=== PATIENT | female | born 1940 | race Hispanic/Latino ===

== ENCOUNTER 2017-08-26 12:34 | Emergency (ER) | payer MEDICARE ==
[2017-08-26] MEDS ORDERED: SUBLIMAZE IV ONE (13:13)
--- NOTE | 2017-08-26 13:13 | Emergency Department Report ---
ED Fall HPI - General Chief Complaint: Extremity Injury, Lower Stated Complaint: FELL ON HIP Time Seen by Provider: 08/26/17 13:04 Source: patient, EMS Mode of arrival: Stretcher - History of Present Illness Initial Comments: 76-year-old tripped over a puppy yesterday today with worsening left hip pain left posterior rib pain also bruised her left foot no LOC no head injury and no neck pain no back pain no abdominal complaints no numbness tingling or weakness weakness -: Gradual Fall From: standing When Fall Occurred: 24 hours TEST LEAD Fall Witnessed: yes, by family Place Fall Occurred: home Loss of Consciousness: none Prolonged Down Time?: no Symptoms Prior to Fall: none Location: back, pelvis Associated Symptoms: other (she denies other injuries no neck pain no abdominal pain no numbness tingling or weakness no LOC does have some left-sided flank pain into the left hip). denies: headache, neck pain, numbness, weakness, chest paint, shortness of breath, abdominal pain, hematuria, unable to walk, lightheaded, vertigo, confusion - Related Data Allergies Allergy/AdvReac Type Severity Reaction Status Date / Time acetaminophen Allergy Hives Verified 08/26/17 12:52 [From Tylenol Sinus Congestion Pain] chlorpheniramine Allergy Hives Verified 08/26/17 12:52 [From Tylenol Sinus Congestion Pain] guaifenesin Allergy Hives Verified 08/26/17 12:52 [From Tylenol Sinus Congestion Pain] morphine Allergy Hives Verified 08/26/17 12:52 Penicillins Allergy Hives Verified 08/26/17 12:52 phenylephrine Allergy Hives Verified 08/26/17 12:52 [From Tylenol Sinus Congestion Pain] promethazine [From Phenergan] Allergy Hives Verified 08/26/17 12:52 pseudoephedrine Allergy Hives Verified 08/26/17 12:52 [From Sudafed] Sulfa (Sulfonamide Allergy Nausea Verified 08/26/17 12:52 Antibiotics) PSEUDOEPHEDRINE Allergy Hives Uncoded 08/26/17 15:36 ED Review of Systems ROS: Stated complaint: FELL ON HIP Other details as noted in HPI Comment: All other systems reviewed and negative Constitutional: denies: diaphoresis, fever, malaise Eyes: denies: eye discharge, vision change ENT: denies: dental pain, hearing loss, epistaxis Respiratory: denies: orthopnea, shortness of breath, SOB with exertion, SOB at rest, stridor Cardiovascular: denies: chest pain, palpitations, dyspnea on exertion, orthopnea , edema, syncope, paroxysmal nocturnal dyspnea Gastrointestinal: denies: abdominal pain, nausea, vomiting, diarrhea, constipation, hematemesis, melena, hematochezia Skin: other (bruising left foot refuses an x-ray of this at this time) Neurological: denies: numbness, paresthesias, confusion, abnormal gait, vertigo Psychiatric: denies: auditory hallucinations Hematological/Lymphatic: denies: easy bleeding, swollen glands ED Past Medical Hx - Past Medical History Previous Medical History?: Yes Hx Hypertension: Yes Hx Diabetes: Yes Additional medical history: ANEMIA - Surgical History Hx Cholecystectomy: Yes Additional Surgical History: HEART/HERNIA - Social History Smoking Status: Never Smoker Substance Use Type: None ED Physical Exam - General Limitations: Other General appearance: alert, in no apparent distress - Head Head exam: Present: atraumatic, normocephalic - Eye Eye exam: Present: PERRL, EOMI - ENT ENT exam: Present: normal exam, normal orophraynx - Neck Neck exam: Present: normal inspection. Absent: tenderness, meningismus - Respiratory Respiratory exam: Present: normal lung sounds bilaterally. Absent: respiratory distress, wheezes, rales, rhonchi, stridor, chest wall tenderness, accessory muscle use, decreased breath sounds, prolonged expiratory - Cardiovascular Cardiovascular Exam: Present: regular rate, normal rhythm, normal heart sounds, other (pulses equal bilaterally). Absent: bradycardia, tachycardia, irregular rhythm - GI/Abdominal GI/Abdominal exam: Present: soft. Absent: tenderness, guarding, rebound, mass, pulsatile mass - Extremities Exam Extremities exam: Present: tenderness, normal capillary refill, other ( tenderness left hip tenderness left iliac crest in the left posterior back no deformity or crepitus is appreciated no midline spinal tenderness is appreciated no neck tenderness the remainder of the extremities there is bruising to the dorsal left foot without bony deformity or crepitus she does afford range of motion the rest contact). Absent: pedal edema, calf tenderness - Back Exam Back exam: Present: tenderness - Neurological Exam Neurological exam: Present: alert, oriented X3, CN II-XII intact. Absent: motor sensory deficit ED Course Vital Signs 08/26/17 08/26/17 08/26/17 12:52 13:25 14:49 Temperature 97.9 F Pulse Rate 65 76 82 Respiratory 18 18 18 Rate Blood Pressure 165/75 Blood Pressure 163/73 151/72 [Left] O2 Sat by Pulse 94 96 100 Oximetry ED Medical Decision Making - Radiology Data Radiology results: report reviewed - Medical Decision Making Chest shows no acute process patient did refuse an x-ray of the left foot she thinks just a bruise that was prior to today's injury she thinks she dropped something on her at home she says it continues to be painful she will come back for an x-ray. The acute issue was the left hip pain in the left posterior back pain there is evidence on the CT of a nondisplaced transverse process fracture of L4 this is a stable fracture. She has no focal neural problems abd exam is normal abdomen is soft nontender without rebound or guarding no head injury or other spinal injury is appreciated she is still from his fall with orthopedics she is refusing pain medications she says she'll take [id number] ibuprofen and a heating pad return if nor alarming symptoms and verbalized understanding of need for follow-up. Patient was also noted to have some inflammatory changes to the pelvic region with possible adenopathy she was informed of this as well as this will need outpatient follow-up and she verbalized understanding Critical care attestation.: If time is entered above; I have spent that time in minutes in the direct care of this critically ill patient, excluding procedure time. ED Disposition Clinical Impression: Lumbar transverse process fracture, Pelvic lymphadenopathy Disposition: TO HOME OR SELFCARE Is pt being admited?: No Condition: Stable Instructions: Thoracolumbar Fracture (ED), Lymphadenopathy (ED) Additional Instructions: Return immediately if new or alarming symptoms or call 911, return if worsening back pain numbness tingling or weakness bladder or bowel problems or other problems fever a loss concerning problems C her regular doctor in 2 days or an orthopedic doctor of your choice Referrals: CHITRA MONTILLA MD [Primary Care Provider] - 3-5 Days DANNI RENTERIA MD [Staff Physician] - 3-5 Days Time of Disposition: 15:47
[2017-08-26] MEDS ORDERED: ZOFRAN IV ONE (13:14)
[2017-08-26] MEDS ORDERED: ZOFRAN ONE (13:19)
[2017-08-26] MEDS ORDERED: SUBLIMAZE ONE (13:19)
--- NOTE | 2017-08-26 14:42 | Cat Scan Report ---
FINAL REPORT EXAM: CT PELVIS WO CON HISTORY: l hip pain TECHNIQUE: CT examination of the pelvis without IV contrast PRIORS: Left hip radiographs 08/26/2017 FINDINGS: Multifocal degenerative change. No acute fracture or dislocation in the pelvis and hips. Intact proximal femurs. There is a minimally displaced avulsion fracture of the left L4 transverse process. No pelvic free fluid. Intact urinary bladder. Nonspecific prominence of stool in rectum. Faint hazy opacity and fat stranding is present in the central mesenteric adipose tissue with prominent lymph nodes but no gross lymph node enlargement. This finding is nonspecific and can be associated with a number of etiologies including scar, edema, inflammation, or infection. Moderate descending and sigmoid diverticulosis. IMPRESSION: Minimally displaced avulsion fracture of the left L4 transverse process Mesenteric fat stranding with prominent of normal sized lymph nodes. Considerations include scar, edema, inflammation, or infection Moderate descending and sigmoid diverticulosis
[2017-08-26 14:49] VITALS: BP 151/72
--- NOTE | 2017-08-26 15:28 | XRay Report ---
FINAL REPORT EXAM: XR CHEST ROUTINE 2V HISTORY: fall/back pain l TECHNIQUE: Frontal and lateral views of the chest. PRIORS: None currently available. FINDINGS: Moderate cardiomegaly. Aortic calcifications. Sternal surgical artifacts are intact. There is no effusion. There is no pneumothorax. There is no consolidation. Lungs appear hyperinflated and may be related to reactive airway disease or COPD. There are no suspicious osseous lesions. Degenerative changes in the spine. No acute displaced fracture is evident on chest x-ray. IMPRESSION: COPD. Cardiomegaly. Otherwise, no acute pulmonary findings.
--- NOTE | 2017-08-26 15:47 | XRay Report ---
FINAL REPORT EXAM: XR PELVIS AND HIP LT HISTORY: PAIN S/P FALL TECHNIQUE: One view of the pelvis One view of the left hip PRIORS: Pelvis CT 08/26/2017 FINDINGS: Arterial calcification is compatible with atherosclerosis. Multifocal degenerative change. Subtle avulsion fracture left L4 transverse process. Intact pelvis and left hip. No dislocation. IMPRESSION: Subtle avulsion fracture left L4 transverse process
== END 2017-08-26 16:08 | disposition home or self-care (01) ==
LOC: ED 12:34
DX: S32.048A Other fracture of fourth lumbar vertebra, initial encounter for closed fracture (principal); R59.0 Localized enlarged lymph nodes; I10 Essential (primary) hypertension; E11.9 Type 2 diabetes mellitus without complications; Z88.6 Allergy status to analgesic agent; Z88.1 Allergy status to other antibiotic agents; Z88.0 Allergy status to penicillin; Z88.8 Allergy status to other drugs, medicaments and biological substances; W18.30XA Fall on same level, unspecified, initial encounter; Y93.89 Activity, other specified; Y92.89 Other specified places as the place of occurrence of the external cause; Y99.8 Other external cause status
CPT/HCPCS: 71046; 72192; 73502; 96374; 96375; 99284; J2405; J3010

== ENCOUNTER 2019-02-06 02:55 | Observation (INO) | payer MEDICARE ==
--- NOTE | 2019-02-06 03:29 | XRay Report ---
CHEST 1 VIEW 0304 INDICATION / CLINICAL INFORMATION: Chest Pain. COMPARISON: None available. FINDINGS: SUPPORT DEVICES: None HEART / MEDIASTINUM: No significant abnormality. LUNGS / PLEURA: Moderate diffuse chronic changes are seen in the lung darden. No definite areas of co nsolidation are seen. May be slight atelectatic change in the left base. No pneumothorax. ADDITIONAL FINDINGS: No significant additional findings. IMPRESSION: No significant acute abnormality Signer Name: Puneet Ngo MD Signed: 02/06/2019 3:25 AM Workstation Name: [id number]
[2019-02-06 03:58] LABS: Basophils % (Auto) 1.1 % (0.0-1.8); Eosinophils # (Auto) 0.1 K/mm3 (0.0-0.4); Eosinophils % (Auto) 1.6 % (0.0-4.3); Hemoglobin 10.8 gm/dl (10.1-14.3); Lymphocytes % (Auto) 25.7 % (13.4-35.0); Mean Corpuscular HGB Conc 33 % (30-34); Mean Corpuscular Volume 95 fl (79-97); Monocytes # (Auto) 0.3 K/mm3 (0.0-0.8); Monocytes % (Auto) 8.5 % (0.0-7.3); Platelet Count 123 K/mm3 (140-440); Red Blood Count 3.46 M/mm3 (3.65-5.03); Red Cell Distribution Width 15.4 % (13.2-15.2)
[2019-02-06 04:09] LABS: BUN/Creatinine Ratio 22; Blood Urea Nitrogen 13 mg/dL (7-17); Calcium 8.6 mg/dL (8.4-10.2); Hemolysis Index 5
--- NOTE | 2019-02-06 06:20 | Emergency Department Report ---
ED Chest Pain HPI - General Chief Complaint: Chest Pain Stated Complaint: HBP Time Seen by Provider: 02/06/19 06:17 Source: EMS Mode of arrival: Stretcher Limitations: No Limitations - History of Present Illness Initial Comments: 78-year-old female who arrives primarily concerned about her blood pressure. She states incidentally that she's been having intermittent chest pain and some shortness of breath. She states she used her home nebulizer. She presented to the emergency department without chest pain at the time of my encounter. The chest pain was nonpleuritic and nonradiating involving her anterior chest. She states that she is status post PCI followed by a single vessel coronary artery bypass. She states he has been unable to control the blood pressure despite taking sublingual nitroglycerin. -: Gradual, hour(s) Pain Location: substernal Pain Radiation: none Severity: mild Severity scale (0 -10): 4 Quality: aching Consistency: intermittent Improves With: nothing Worsens With: nothing re: dyspnea Other Symptoms: cough (occasional) Treatments Prior to Arrival: none - Related Data Allergies Allergy/AdvReac Type Severity Reaction Status Date / Time acetaminophen Allergy Hives Verified 08/26/17 12:52 [From Tylenol Sinus Congestion Pain] chlorpheniramine Allergy Hives Verified 08/26/17 12:52 [From Tylenol Sinus Congestion Pain] guaifenesin Allergy Hives Verified 08/26/17 12:52 [From Tylenol Sinus Congestion Pain] morphine Allergy Hives Verified 08/26/17 12:52 Penicillins Allergy Hives Verified 08/26/17 12:52 phenylephrine Allergy Hives Verified 08/26/17 12:52 [From Tylenol Sinus Congestion Pain] promethazine [From Phenergan] Allergy Hives Verified 08/26/17 12:52 pseudoephedrine Allergy Hives Verified 08/26/17 12:52 [From Sudafed] Sulfa (Sulfonamide Allergy Nausea Verified 08/26/17 12:52 Antibiotics) PSEUDOEPHEDRINE Allergy Hives Uncoded 08/26/17 15:36 Heart Score - HEART Score History: Slightly suspicious EKG: Normal Age: > 65 Risk factors: > 3 risk factors or hx of atherosclerotic disease Troponin: < normal limit HEART Score: 4 - Critical Actions Critical Actions: 4-6 pts:12-16.6% risk of adverse cardiac event. Should be admitted ED Review of Systems ROS: Stated complaint: HBP Other details as noted in HPI Constitutional: denies: chills, fever Eyes: denies: eye pain, eye discharge, vision change ENT: denies: ear pain, throat pain Respiratory: shortness of breath. denies: cough, wheezing Cardiovascular: chest pain. denies: palpitations Endocrine: no symptoms reported Gastrointestinal: denies: abdominal pain, nausea, diarrhea Genitourinary: denies: urgency, dysuria, discharge Musculoskeletal: denies: back pain, joint swelling, arthralgia Skin: denies: rash, lesions Neurological: denies: headache, weakness, paresthesias Psychiatric: denies: anxiety, depression Hematological/Lymphatic: denies: easy bleeding, easy bruising ED Past Medical Hx - Past Medical History Previous Medical History?: Yes Hx Hypertension: Yes Hx Diabetes: Yes Additional medical history: ANEMIA - Surgical History Past Surgical History?: Yes Hx Cholecystectomy: Yes Additional Surgical History: HEART/HERNIA - Social History Smoking Status: Never Smoker Substance Use Type: None ED Physical Exam - General Limitations: No Limitations General appearance: alert, in no apparent distress - Head Head exam: Present: atraumatic, normocephalic - Eye Eye exam: Present: normal appearance. Absent: scleral icterus - ENT ENT exam: Present: mucous membranes moist - Neck Neck exam: Present: normal inspection. Absent: tenderness, meningismus - Respiratory Respiratory exam: Present: normal lung sounds bilaterally. Absent: respiratory distress - Cardiovascular Cardiovascular Exam: Present: regular rate, normal rhythm. Absent: systolic murmur, diastolic murmur, rubs, gallop - GI/Abdominal GI/Abdominal exam: Present: soft, normal bowel sounds. Absent: distended, tenderness, guarding, rebound, rigid - Extremities Exam Extremities exam: Present: pedal edema. Absent: normal capillary refill, joint swelling, calf tenderness - Back Exam Back exam: Present: normal inspection - Neurological Exam Neurological exam: Present: alert, oriented X3, CN II-XII intact. Absent: motor sensory deficit - Psychiatric Psychiatric exam: Present: normal affect, normal mood - Skin Skin exam: Present: warm, dry, intact, normal color. Absent: rash ED Course Vital Signs 02/06/19 02/06/19 02/06/19 04:21 05:00 07:00 Temperature 98.3 F 98.4 F Pulse Rate 62 63 68 Respiratory 14 14 18 Rate Blood Pressure 166/78 146/76 151/77 [Left] O2 Sat by Pulse 97 94 98 Oximetry 02/06/19 08:25 Temperature Pulse Rate 68 Respiratory 15 Rate Blood Pressure 146/78 [Left] O2 Sat by Pulse 99 Oximetry - Reevaluation(s) Reevaluation #1: Nitropaste. Discussed with hospitalist. Admit for further care and evaluation. 02/06/19 09:21 ANDRA score - Andra Score Age > 65: (0) No Aspirin use within the Past 7 Days: (1) Yes 3 or more CAD Risk Factors: (0) No 2 or more Angina events in past 24 hrs: (0) No Known CAD with more than 50% Stenosis: (0) No Elevated Cardiac Markers: (0) No ST Deviation Greater than 0.5mm: (0) No ANDRA Score: 1 ED Medical Decision Making - Lab Data Result diagrams: 02/06/19 03:18 02/06/19 03:18 Laboratory Results - last 24 hr 02/06/19 02/06/19 03:18 03:18 WBC 4.0 L RBC 3.46 L Hgb 10.8 Hct 33.0 MCV 95 MCH 31 MCHC 33 RDW 15.4 H Plt Count 123 L Lymph % (Auto) 25.7 [place] % (Auto) 8.5 H Eos % (Auto) 1.6 Baso % (Auto) 1.1 Lymph # 1.0 L [place] # 0.3 Eos # 0.1 Baso # 0.0 Seg Neutrophils % 63.1 Seg Neutrophils # 2.5 Sodium 139 Potassium 3.7 Chloride 104.1 Carbon Dioxide 22 Anion Gap 17 BUN 13 Creatinine 0.6 L Estimated GFR > 60 BUN/Creatinine Ratio 22 Glucose 135 H Calcium 8.6 Troponin T < 0.010 - EKG Data -: EKG Interpreted by Sd EKG shows normal: sinus rhythm Rate: normal - EKG Data Interpretation: other (somewhat low voltage) - Radiology Data Radiology results: image reviewed (no acute process) Critical care attestation.: If time is entered above; I have spent that time in minutes in the direct care of this critically ill patient, excluding procedure time. ED Disposition Clinical Impression: Poorly-controlled hypertension Chest pain Qualifiers: Chest pain type: unspecified Qualified Code(s): R07.9 - Chest pain, unspecified Disposition: OP ADMIT IP TO THIS HOSP Is pt being admited?: Yes Does the pt Need Aspirin: Yes Condition: Stable Instructions: Chest Pain (ED) Referrals: PRIMARY CARE, [Primary Care Provider] - 3-5 Days Time of Disposition: 09:23
[2019-02-06] MEDS ORDERED: NITROGLYCERIN 2% OINT 1 GM TP ONE ×2 (06:23→09:38)
[2019-02-06 07:23] LABS: INR 0.95 (0.87-1.13)
[2019-02-06 07:24] LABS: Partial Thromboplastin Time 24.5 Sec. (24.2-36.6)
[2019-02-06 07:28] LABS: Alanine Aminotransferase 16 units/L (7-56); Albumin 4.2 g/dL (3.9-5)
[2019-02-06 07:29] LABS: Bilirubin,Direct < 0.2 mg/dL (0-0.2)
[2019-02-06] MEDS: ASPIRIN 325 MG TAB PO ONE ×2 (07:30→11:41)
[2019-02-06] MEDS ORDERED: ACETAMINOPHEN 325 MG TAB PO PRN (11:04)
[2019-02-06] MEDS ORDERED: ONDANSETRON 4 MG/2 ML INJ IV PRN (11:04)
[2019-02-06] MEDS ORDERED: NITROGLYCERIN 0.4 MG TAB SUBL SL PRN (11:06)
--- NOTE | 2019-02-06 11:07 | History and Physical Report ---
History of Present Illness Chief complaint: My blood pressure has been high History of present illness: 78-year-old woman who presents to the hospital concerned about her blood pressure. She then incidentally states that she has some chest pain or shortness of breath. Chest pain is 4 out of 10, substernal, nonradiating. She tried using her home nebulizer with no improvements. Chest pain is nonpleuritic. She has history of CAD status post PCI followed by single-vessel CABG. It appears that the patient was trying to control her blood pressure at home with sublingual nitroglycerin. Home medications are not available for review at this time. But patient self reports that she takes lisinopril, metoprolol and Imdur. States that lisinopril was added because her blood pressure was not well controlled. 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 Past medical history; hypertension, diabetes, chronic anemia, asthma on Dulera Past surgical history, cholecystectomy, CABG, hernia repair Social history; never smoker, denies alcohol abuse or illicit drug use Family history; heart disease Medications and Allergies Allergies Allergy/AdvReac Type Severity Reaction Status Date / Time acetaminophen Allergy Hives Verified 08/26/17 12:52 [From Tylenol Sinus Congestion Pain] chlorpheniramine Allergy Hives Verified 08/26/17 12:52 [From Tylenol Sinus Congestion Pain] guaifenesin Allergy Hives Verified 08/26/17 12:52 [From Tylenol Sinus Congestion Pain] morphine Allergy Hives Verified 08/26/17 12:52 Penicillins Allergy Hives Verified 08/26/17 12:52 phenylephrine Allergy Hives Verified 08/26/17 12:52 [From Tylenol Sinus Congestion Pain] promethazine [From Phenergan] Allergy Hives Verified 08/26/17 12:52 pseudoephedrine Allergy Hives Verified 08/26/17 12:52 [From Sudafed] Sulfa (Sulfonamide Allergy Nausea Verified 08/26/17 12:52 Antibiotics) PSEUDOEPHEDRINE Allergy Hives Uncoded 08/26/17 15:36 Review of Systems All systems: negative Constitutional: no weight loss Ears, nose, mouth and throat: no ear pain Breasts: deferred Cardiovascular: chest pain Respiratory: no cough Gastrointestinal: no abdominal pain Rectal: no pain Musculoskeletal: no neck stiffness Integumentary: no rash Neurological: no head injury Psychiatric: no anxiety Endocrine: no cold intolerance Hematologic/Lymphatic: no easy bruising Allergic/Immunologic: no urticaria Exam - Constitutional Vitals: Temp Pulse Resp BP Pulse Ox 98.2 F 69 15 173/101 98 02/06/19 09:00 02/06/19 09:45 02/06/19 09:00 02/06/19 09:45 02/06/19 09:00 General appearance: Present: no acute distress, well-nourished - EENT Eyes: Present: PERRL ENT: hearing intact, clear oral mucosa - Neck Neck: Present: supple, normal ROM - Respiratory Respiratory effort: normal Respiratory: bilateral: CTA - Cardiovascular Heart Sounds: Present: S1 & S2. Absent: rub, click - Extremities Extremities: pulses symmetrical, No edema Peripheral Pulses: within normal limits - Abdominal General gastrointestinal: Present: soft, non-tender, non-distended, normal bowel sounds Female genitourinary: Present: normal - Integumentary Integumentary: Present: clear, warm, dry - Musculoskeletal Musculoskeletal: gait normal, strength equal bilaterally - Psychiatric Psychiatric: appropriate mood/affect, intact judgment & insight - Neurologic Neurologic: CNII-XII intact, moves all extremities Results - Labs CBC & Chem 7: 02/06/19 03:18 02/06/19 09:30 Labs: Laboratory Last Values WBC 4.0 K/mm3 (4.5-11.0) L 02/06/19 03:18 RBC 3.46 M/mm3 (3.65-5.03) L 02/06/19 03:18 Hgb 10.8 gm/dl (10.1-14.3) 02/06/19 03:18 Hct 33.0 % (30.3-42.9) 02/06/19 03:18 MCV 95 fl (79-97) 02/06/19 03:18 MCH 31 pg (28-32) 02/06/19 03:18 MCHC 33 % (30-34) 02/06/19 03:18 RDW 15.4 % (13.2-15.2) H 02/06/19 03:18 Plt Count 123 K/mm3 (140-440) L 02/06/19 03:18 Lymph % (Auto) 25.7 % (13.4-35.0) 02/06/19 03:18 [place] % (Auto) 8.5 % (0.0-7.3) H 02/06/19 03:18 Eos % (Auto) 1.6 % (0.0-4.3) 02/06/19 03:18 Baso % (Auto) 1.1 % (0.0-1.8) 02/06/19 03:18 Lymph # 1.0 K/mm3 (1.2-5.4) L 02/06/19 03:18 [place] # 0.3 K/mm3 (0.0-0.8) 02/06/19 03:18 Eos # 0.1 K/mm3 (0.0-0.4) 02/06/19 03:18 Baso # 0.0 K/mm3 (0.0-0.1) 02/06/19 03:18 Seg Neutrophils % 63.1 % (40.0-70.0) 02/06/19 03:18 Seg Neutrophils # 2.5 K/mm3 (1.8-7.7) 02/06/19 03:18 PT 12.6 Sec. (12.2-14.9) 02/06/19 06:39 INR 0.95 (0.87-1.13) 02/06/19 06:39 APTT 24.5 Sec. (24.2-36.6) 02/06/19 06:39 D-Dimer 707.08 ng/mlDDU (0-234) H 02/06/19 06:39 Sodium 139 mmol/L (137-145) 02/06/19 03:18 Potassium 3.7 mmol/L (3.6-5.0) 02/06/19 03:18 Chloride 104.1 mmol/L (98-107) 02/06/19 03:18 Carbon Dioxide 22 mmol/L (22-30) 02/06/19 03:18 Anion Gap 17 mmol/L 02/06/19 03:18 BUN 13 mg/dL (7-17) 02/06/19 03:18 Creatinine 0.6 mg/dL (0.7-1.2) L 02/06/19 03:18 Estimated GFR > 60 ml/min 02/06/19 03:18 BUN/Creatinine Ratio 22 % 02/06/19 03:18 Glucose 135 mg/dL (65-100) H 02/06/19 03:18 Calcium 8.6 mg/dL (8.4-10.2) 02/06/19 03:18 Magnesium 1.50 mg/dL (1.7-2.3) L 02/06/19 06:39 Total Bilirubin 0.30 mg/dL (0.1-1.2) 02/06/19 06:39 Direct Bilirubin < 0.2 mg/dL (0-0.2) 02/06/19 06:39 Indirect Bilirubin 0.1 mg/dL 02/06/19 06:39 AST 19 units/L (5-40) 02/06/19 06:39 ALT 16 units/L (7-56) 02/06/19 06:39 Alkaline Phosphatase 79 units/L (35-129) 02/06/19 06:39 Troponin T < 0.010 ng/mL (0.00-0.029) 02/06/19 09:30 NT-Pro-B Natriuret Pep 1563 pg/mL (0-900) H 02/06/19 06:39 Total Protein 7.2 g/dL (6.3-8.2) 02/06/19 06:39 Albumin 4.2 g/dL (3.9-5) 02/06/19 06:39 Albumin/Globulin Ratio 1.4 % 02/06/19 06:39 Assessment and Plan Assessment and plan: 78-year-old woman who presents to the hospital complaining of chest pain Chest x-ray no significant acute abnormalities Chest pain aspirin, EKG no acute findings, chest x-ray neg, troponins negative x3, Discussed with cardiology, she was seen at [facility] 2 weeks ago complaining of chest pain and at that time she had elevated blood pressure. Stress test was done and was negative at that time. Hypertensive urgency Optimize BP meds, increase lisinopril dose to 20 daily Asthma, chronic and stable Continue controlled medications, takes Dulera at home DVT prophylaxis; Lovenox
[2019-02-06] MEDS ORDERED: BUDESONIDE 0.5 MG/2 ML NEBU IH ONE (11:10)
[2019-02-06] MEDS ORDERED: ALBUTEROL 2.5 MG/3 ML NEBU IH PRN (11:10)
[2019-02-06] MEDS ORDERED: hydrALAZINE 20 MG/1 ML INJ IV PRN (11:11)
[2019-02-06] MEDS ORDERED: ASPIRIN 325 MG TAB ONE (11:50)
[2019-02-06] MEDS ORDERED: LISINOPRIL 20 MG TAB ONE (11:51)
[2019-02-06] MEDS: LISINOPRIL 20 MG TAB PO SCH (11:56)
[2019-02-06] MEDS ORDERED: METOPROLOL SUCCINATE XL 25 MG TAB PO SCH ×2 (12:00→13:23)
[2019-02-06 12:47] LABS: BUN/Creatinine Ratio 18; Blood Urea Nitrogen 11 mg/dL (7-17); Calcium 8.8 mg/dL (8.4-10.2); Hemolysis Index 5
--- NOTE | 2019-02-06 13:10 | Consultation ---
History of Present Illness Consult date: 02/06/19 Requesting physician: MANA BELLO Consult reason: chest pain History of present illness: The pt is a 78-year-old female with a past medical history of CAD s/p CABG, HTN, HLP, DM, GERD. She is followed in our office by Dr. Lerma. She presented with c/o elevated BPs and chest pain. She states that for the past several nights, she has been having nightmares which have caused her to wake up with elevated BPs with SBPs 220s. She reports that when her BPs become significantly elevated, she develops chest pain. She describes her chest pain as an intermittent midsternal pressure which resolves when her BPs return to normal range. She denies any SOB, palpitations, n/v, diaphoresis, dizziness or syncope. She repo rts compliance with her medication regimen. Of note, she was recently admitted to [facility] (discharged 01/24/2019) for eval/treatment of hypertensive urgency and chest pain. She underwent lexiscan MPI stress test on 01/24/2019 which was negative. Stress echo done 07/2017 was negative for exercise-induced wall motion abnormalities. Past History Past Medical History: CAD, diabetes, GERD, hypertension, hyperlipidemia Past Surgical History: cholecystectomy, CABG Social history: denies: smoking, alcohol abuse, prescription drug abuse Family history: CAD, hypertension Medications and Allergies Allergies Allergy/AdvReac Type Severity Reaction Status Date / Time acetaminophen Allergy Hives Verified 08/26/17 12:52 [From Tylenol Sinus Congestion Pain] chlorpheniramine Allergy Hives Verified 08/26/17 12:52 [From Tylenol Sinus Congestion Pain] guaifenesin Allergy Hives Verified 08/26/17 12:52 [From Tylenol Sinus Congestion Pain] morphine Allergy Hives Verified 08/26/17 12:52 Penicillins Allergy Hives Verified 08/26/17 12:52 phenylephrine Allergy Hives Verified 08/26/17 12:52 [From Tylenol Sinus Congestion Pain] promethazine [From Phenergan] Allergy Hives Verified 08/26/17 12:52 pseudoephedrine Allergy Hives Verified 08/26/17 12:52 [From Sudafed] Sulfa (Sulfonamide Allergy Nausea Verified 08/26/17 12:52 Antibiotics) PSEUDOEPHEDRINE Allergy Hives Uncoded 08/26/17 15:36 Active Meds: Active Medications Acetaminophen (Tylenol) 650 mg PO Q4H PRN PRN Reason: Pain MILD(1-3)/Fever >100.5/SCOTT Albuterol (Proventil) 2.5 mg IH Q4HRT PRN PRN Reason: Shortness Of Breath Arformoterol Tartrate (Brovana Nebu) 15 mcg IH Q12HRT [facility] Hydralazine HCl (Apresoline) 10 mg IV Q4HR PRN PRN Reason: BP >160/100 Lisinopril (Zestril) 20 mg PO QDAY [facility] Last Admin: 02/06/19 11:56 Dose: 20 mg Documented by: Metoprolol Succinate (Metoprolol Xl) 25 mg PO QDAY [facility] Nitroglycerin (Nitrostat) 0.4 mg SL .Q5MIN PRN PRN Reason: Chest Pain Ondansetron HCl (Zofran) 4 mg IV Q8H PRN PRN Reason: Nausea And Vomiting Sodium Chloride (Sodium Chloride Flush Syringe 10 Ml) 10 ml IV BID [facility] Sodium Chloride (Sodium Chloride Flush Syringe 10 Ml) 10 ml IV PRN PRN PRN Reason: LINE FLUSH Review of Systems Constitutional: no weight loss, no weight gain, no fever, no chills, no sweats Ears, nose, mouth and throat: no ear pain, no nose pain, no sinus pressure, no sinus pain Cardiovascular: chest pain, high blood pressure, no orthopnea, no palpitations, no rapid/irregular heart beat, no edema, no syncope, no lightheadedness, no shortness of breath, no dyspnea on exertion, no paroxysmal nocturnal dyspnea, no decreased exercise tolerance Respiratory: no cough, no shortness of breath, no dyspnea on exertion, no conge stion, no wheezing, no pain on inspiration Gastrointestinal: no abdominal pain, no nausea, no vomiting, no diarrhea, no constipation, no change in bowel habits Genitourinary Female: no pelvic pain, no flank pain, no dysuria, no urinary frequency, no urgency Musculoskeletal: no neck stiffness, no neck pain, no shooting arm pain, no arm numbness/tingling, no low back pain, no shooting leg pain Integumentary: no rash, no pruritis, no redness, no sores, no wounds Neurological: no head injury, no paralysis, no weakness, no parathesias, no numbness, no tingling, no seizures, no syncope Psychiatric: no anxiety Endocrine: no cold intolerance, no heat intolerance Hematologic/Lymphatic: no easy bruising, no easy bleeding Allergic/Immunologic: no urticaria, no wheezing Physical Examination Vital Signs Temp Pulse Resp BP Pulse Ox 98.3 F 62 14 166/78 97 02/06/19 04:21 02/06/19 04:21 02/06/19 04:21 02/06/19 04:21 02/06/19 04:21 General appearance: no acute distress HEENT: Positive: PERRL, Normocephaly, Mucus Membranes Moist Neck: Positive: neck supple, trachea midline Cardiac: Positive: Reg Rate and Rhythm, S1/S2 Lungs: Positive: Decreased Breath Sounds Neuro: Positive: Grossly Intact Abdomen: Negative: Tender Skin: Negative: Rash Musculoskeletal: No Pain Extremities: Absent: edema Results 02/06/19 03:18 02/06/19 09:30 Cardiac Enzymes 02/06/19 Range/Units 06:39 AST 19 (5-40) units/L Coagulation 02/06/19 Range/Units 06:39 PT 12.6 (12.2-14.9) Sec. INR 0.95 (0.87-1.13) APTT 24.5 (24.2-36.6) Sec. CBC 02/06/19 Range/Units 03:18 WBC 4.0 L (4.5-11.0) K/mm3 RBC 3.46 L (3.65-5.03) M/mm3 Hgb 10.8 (10.1-14.3) gm/dl Hct 33.0 (30.3-42.9) % Plt Count 123 L (140-440) K/mm3 Lymph # 1.0 L (1.2-5.4) K/mm3 [place] # 0.3 (0.0-0.8) K/mm3 Eos # 0.1 (0.0-0.4) K/mm3 Baso # 0.0 (0.0-0.1) K/mm3 Comprehensive Metabolic Panel 02/06/19 02/06/19 02/06/19 Range/Units 03:18 06:39 09:30 Sodium 139 141 (137-145) mmol/L Potassium 3.7 3.9 (3.6-5.0) mmol/L Chloride 104.1 105.5 (98-107) mmol/L Carbon Dioxide 22 22 (22-30) mmol/L BUN 13 11 (7-17) mg/dL Creatinine 0.6 L 0.6 L (0.7-1.2) mg/dL Glucose 135 H 111 H (65-100) mg/dL Calcium 8.6 8.8 (8.4-10.2) mg/dL Direct Bilirubin < 0.2 (0-0.2) mg/dL Indirect Bilirubin 0.1 mg/dL AST 19 (5-40) units/L ALT 16 (7-56) units/L Alkaline Phosphatase 79 (35-129) units/L Total Protein 7.2 (6.3-8.2) g/dL Albumin 4.2 (3.9-5) g/dL - Imaging and Cardiology Echo: report reviewed EKG: report reviewed, image reviewed EKG interpretations - Telemetry EKG Rhythm: Sinus Rhythm - EKG Sinus rhythms and dysrhythmias: sinus rhythm Assessment and Plan Pt presented with uncontrolled HTN and chest pain. AMI ruled out. Lexiscan MPI stress test done 01/24/2019 was negative. DDimer is noted to be elevated - recommend r/o PE per primary. Optimize anti-hypertensive regimen. Obtain echo. Further recs to follow per hospital course. The patient has been seen in conjunction with Dr. Lopez who agrees with the assessment and plan of care. - Patient Problems (1) Poorly-controlled hypertension Current Visit: Yes Status: Chronic (2) Chest pain Current Visit: Yes Status: Acute Qualifiers: Chest pain type: unspecified Qualified Code(s): R07.9 - Chest pain, unspecified (3) CAD (coronary artery disease) Current Visit: Yes Status: Chronic (4) History of coronary artery bypass graft Current Visit: Yes Status: Chronic (5) Hyperlipidemia Current Visit: Yes Status: Chronic (6) Diabetes Current Visit: Yes Status: Chronic (7) GERD (gastroesophageal reflux disease) Current Visit: Yes Status: Chronic
[2019-02-06] MEDS: ARFORMOTEROL 15 MCG/2 ML NEBU IH SCH (21:00)
[2019-02-06 23:00] LABS: Bacteria,Urine 2+ /HPF (Negative); Bilirubin,Urine NEG (Negative); Blood,Urine SM (Negative); Color,Urine Straw (Yellow); Protein,Urine <15 mg/dL mg/dL (Negative); Urobilinogen,Urine < 2.0 mg/dL (<2.0)
[2019-02-07 05:52] LABS: Chol/HDL Ratio 2.57 %
[2019-02-07] MEDS ORDERED: DEXTROSE 50% IN WATER (25GM) 50 ML SYRINGE IV PRN (07:46)
[2019-02-07] MEDS: ARFORMOTEROL 15 MCG/2 ML NEBU IH SCH (07:56)
[2019-02-07 08:33] VITALS: BP 151/91
--- NOTE | 2019-02-07 09:56 | Vascular Lab Report ---
DUPLEX DOPPLER LOWER EXTREMITY VEINS, BILATERAL INDICATION: Bilateral lower extremity edema for a few days with shortness of breath. TECHNIQUE: Duplex doppler imaging was performed through the veins of both lower extremities using venous shabnam olayinka and other maneuvers. COMPARISON: None available. FINDINGS: Right Common femoral vein: Negative. Right Superficial femoral vein: Negative. Right Popliteal vein: Negative. Right Calf veins: Negative. Left Common femoral vein: Negative. Left Superficial femoral vein: Negative. Left Popliteal vein: Negative. Left Calf veins: Negative. Additional findings: There is no evidence of a popliteal cyst or other significant abnormality. IMPRESSION: No sonographic evidence for DVT in either lower extremity. Signer Name: Jarrett Velasco MD Signed: 02/07/2019 9:52 AM Workstation Name: [id number]
[2019-02-07] MEDS ORDERED: ASPIRIN 81 MG TAB CHEW PO SCH (10:00)
--- NOTE | 2019-02-07 10:19 | Cat Scan Report ---
CTA CHEST WITH IV CONTRAST INDICATION: Chest pain. TECHNIQUE: Axial CT images were obtained through the chest after injection of IV contrast. 3 plane MIP reconstru ctions were produced. All CT scans at this location are performed using CT dose reduction for ALARA b y means of automated exposure control. COMPARISON: None available. FINDINGS: Pulmonary Arteries: No pulmonary emboli. Thoracic Aorta: No acute abnormality. Heart: Cardiomegaly is noted. There has been prior CABG. Lungs: 1 increased reticular markings may be due to interstitial pulmonary edema. There are atelectat ic changes in the bases. Pleura: No pleural effusion. No pneumothorax. Lymph Nodes: No significant adenopathy. Additional Findings: None. Upper Abdomen: No acute findings. Skeletal Structures: No significant osseous abnormality. IMPRESSION: 1. No CT evidence for pulmonary embolism. 2. Mild increased interstitial markings within the lungs could be seen in the setting of mild interst itial edema. 3. Additional incidental findings as above. Signer Name: Mati Baires MD Signed: 02/07/2019 10:14 AM Workstation Name: [id number]
--- NOTE | 2019-02-07 10:34 | Discharge Summary ---
Providers - Providers Date of Admission: 02/06/19 09:43 Attending physician: MANA BELLO MD 02/06/19 11:04 Consult to Physician [CONS] Routine Comment: Consulting Provider: SANIA HE Physician Instructions: Reason For Exam: cp 02/07/19 07:46 Consult to Dietitian/Nutrition [CONS] Routine Physician Instructions: 10 Reason For Exam: Reason for Consult: Diet education Primary care physician: [employer] Hospitalization Condition: Stable Hospital course: 78-year-old woman who presents to the hospital complaining of chest pain Chest x-ray no significant acute abnormalities Chest pain aspirin, EKG no acute findings, chest x-ray neg, troponins negative x3, Discussed with cardiology, she was seen at [facility] 2 weeks ago complaining of chest pain and at that time she had elevated blood pressure. Stress test was done and was negative at that time. Discussed with cardiology, no further work-up was recommended Hypertensive urgency Resume home BP meds after which it resolved. Suspect that stress may be contributing to her spikes in BP. Patient states that she is been fighting with her daughter constantly. Her daughter also has a history of CAD status post VT. Advised that they try to resolve their issues amicably as they both suffer from heart problems. Patient admitted that she will try to make some changes with how she relates to her daughter and other family members. Asthma, chronic and stable Continue controlled medications, takes Dulera at home Type 2 diabetes Received SSI, continue metformin at home upon discharge. A1c 6.2, well controlled. Uncomplicated UTI Given Cipro x3 days Preventative health counseling performed for 17 minutes DVT prophylaxis; Lovenox Disposition: - TO HOME OR SELFCARE Time spent for discharge: 33 mins Core Measure Documentation - Palliative Care Palliative Care/ Comfort Measures: Not Applicable - Core Measures Any of the following diagnoses?: none Exam - Constitutional Vitals: Temp Pulse Resp BP Pulse Ox 98.3 F 81 18 151/91 95 02/07/19 08:31 02/07/19 08:31 02/07/19 08:31 02/07/19 08:31 02/07/19 08:31 General appearance: Present: no acute distress, well-nourished - EENT Eyes: Present: PERRL ENT: hearing intact, clear oral mucosa - Neck Neck: Present: supple, normal ROM - Respiratory Respiratory effort: normal Respiratory: bilateral: CTA - Cardiovascular Heart Sounds: Present: S1 & S2. Absent: rub, click - Extremities Extremities: pulses symmetrical, No edema Peripheral Pulses: within normal limits - Abdominal General gastrointestinal: Present: soft, non-tender, non-distended, normal bowel sounds Female genitourinary: Present: normal - Integumentary Integumentary: Present: clear, warm, dry - Musculoskeletal Musculoskeletal: gait normal, strength equal bilaterally - Psychiatric Psychiatric: appropriate mood/affect, intact judgment & insight - Neurologic Neurologic: CNII-XII intact, moves all extremities Plan Follow up with: PRIMARY CARE,MD [Primary Care Provider] - 3-5 Days Prescriptions: AtorvaSTATin [Lipitor] 40 mg PO QHS #30 tablet Ciprofloxacin HCl [Ciprofloxacin TAB] 500 mg PO Q12HR #6 tab Aspirin EC [Halfprin EC] 81 mg PO QDAY #30 tablet.
[2019-02-07] MEDS: LISINOPRIL 20 MG TAB PO SCH (10:41)
[2019-02-07] MEDS ORDERED: INSULIN LISPRO 100 UNIT/ML SUB-Q SCH (11:30)
[2019-02-07] MEDS ORDERED: FLU VACC QUAD 2019-20 (3 YR UP)/PF 60 MCG/0.5 ML SYRINGE IM ONE (12:00)
[2019-02-07] MEDS ORDERED: PNEUMOCOCCAL 23 Valent 0.5 ML VIAL IM ONE (12:00)
--- NOTE | 2019-02-07 12:15 | Progress Note ---
Assessment and Plan Pt presented with uncontrolled HTN and chest pain. AMI ruled out. BPs improving, chest pain currently resolved. Lexiscan MPI stress test done 01/24/2019 was negative. Echo reviewed - EF 50-55%, impaired relaxation, mild MRTg [place] is noted to be elevated - chest CTA negative for PE, BLE duplex negative for DVT. Currently stable cardiac status. Pt may discharge home from cardiology standpoint. Recommend follow up in our office with Dr. Lerma within 1-2 weeks of hospital discharge ([phone]). The patient has been seen in conjunction with Dr. Lopez who agrees with the assessment and plan of care. - Patient Problems (1) Poorly-controlled hypertension Current Visit: Yes Status: Chronic (2) Chest pain Current Visit: Yes Status: Resolved Qualifiers: Chest pain type: unspecified Qualified Code(s): R07.9 - Chest pain, unspecified (3) CAD (coronary artery disease) Current Visit: Yes Status: Chronic (4) History of coronary artery bypass graft Current Visit: Yes Status: Chronic (5) Hyperlipidemia Current Visit: Yes Status: Chronic (6) Diabetes Current Visit: Yes Status: Chronic (7) GERD (gastroesophageal reflux disease) Current Visit: Yes Status: Chronic Subjective Date of service: 02/07/19 Principal diagnosis: cp; htn Interval history: pt states she is feeling better today. in SR on tele. Objective Last Vital Signs Temp 98.3 F 02/07/19 08:31 Pulse 81 02/07/19 10:41 Resp 18 02/07/19 08:31 BP 151/91 02/07/19 10:41 Pulse Ox 95 02/07/19 08:31 - Physical Examination General: No Apparent Distress HEENT: Positive: PERRL, Normocephaly, Mucus Membranes Moist Neck: Positive: neck supple, trachea midline Cardiac: Positive: Reg Rate and Rhythm, S1/S2 Lungs: Positive: Decreased Breath Sounds Neuro: Positive: Grossly Intact Abdomen: Negative: Tender Skin: Negative: Rash Musculoskeletal: No Pain Extremities: Absent: edema - Labs and Meds Lipids 02/07/19 Range/Units 03:55 Triglycerides 129 (2-149) mg/dL Cholesterol 90 (50-199) mg/dL HDL Cholesterol 35 L (40-59) mg/dL Cholesterol/HDL Ratio 2.57 % Comprehensive Metabolic Panel 02/06/19 Range/Units 09:30 Sodium 141 (137-145) mmol/L Potassium 3.9 (3.6-5.0) mmol/L Chloride 105.5 (98-107) mmol/L Carbon Dioxide 22 (22-30) mmol/L BUN 11 (7-17) mg/dL Creatinine 0.6 L (0.7-1.2) mg/dL Glucose 111 H (65-100) mg/dL Calcium 8.8 (8.4-10.2) mg/dL - Imaging and Cardiology EKG: report reviewed, image reviewed Echo: report reviewed - EKG Sinus rhythms and dysrhythmias: sinus rhythm
== END 2019-02-07 17:17 | disposition home or self-care (01) ==
LOC: ED 02:55 → INTOOBSV 09:43 → 4A 09:43
PROVIDERS: ADMIT Internal Medicine; ATTEND Internal Medicine
DX: R07.89 Other chest pain (principal); I10 Essential (primary) hypertension; E11.9 Type 2 diabetes mellitus without complications; I25.10 Atherosclerotic heart disease of native coronary artery without angina pectoris; D64.9 Anemia, unspecified; J45.909 Unspecified asthma, uncomplicated; E78.5 Hyperlipidemia, unspecified; K21.9 Gastro-esophageal reflux disease without esophagitis; Z23 Encounter for immunization; Z90.49 Acquired absence of other specified parts of digestive tract; Z95.1 Presence of aortocoronary bypass graft; Z79.82 Long term (current) use of aspirin; Z79.51 Long term (current) use of inhaled steroids; Z79.899 Other long term (current) drug therapy; Z88.8 Allergy status to other drugs, medicaments and biological substances
CPT/HCPCS: 36415; 71045; 71275; 80048; 80061; 80076; 81001; 82962; 83036; 83735; 83880; 84484; 85025; 85379; 85610; 85730; 87076; 87086; 87116; 87186; 90686; 90732; 93005; 93010; 93306; 93970; 94640; 96372; 99284; A9270; G0378; Q9967; J1815

== ENCOUNTER 2019-05-24 01:31 | Emergency (ER) | payer MEDICARE ==
--- NOTE | 2019-05-24 02:14 | Emergency Department Report ---
ED General Adult HPI - General Chief complaint: Chest Pain Stated complaint: CHEST PAIN Time Seen by Provider: 05/24/19 01:44 Source: patient, EMS ( EMS documentation not available at time of chart dictation ), RN notes reviewed, old records reviewed Mode of arrival: Stretcher Limitations: No Limitations - History of Present Illness Initial comments: During the entire history and physical examination, I am bench lay out technician and escorted by drying oven tender/it service technician, Gabby Funez This patient is a pleasant 78-year-old female. Her od grinder operator is Dr. Anurag bryant. She has a history of heart disease status post CABG, hypertension, high cholesterol, diabetes, GERD. She was admitted to this hospital January 2019 for chest pain. She had a CT scan of the chest which was negative for pulmonary embolism. She had bilateral lower extremity DVT study which was negative for acute disease. Cardiology consulted on the patient, and documents a negative nuclear stress test performed on 01/24/2019. She also had an echocardiogram performed, which showed ejection fraction of 50 to 55% The patient presents to the ER today with a complaint of anterior chest wall pain, which started at 8:00 PM yesterday, intermittent, does not radiate anywhere, associated with high blood pressure, which she has had in the past, without vomiting, diaphoresis or exertional shortness of breath. She denies headache, neck pain, shortness of breath, abdominal pain, urinary symptoms, leg pain and leg swelling, and she denies DVT and pulmonary embolism risk factors. Her chest wall pain increases with palpation and decreases with rest. She reports that she was having high blood pressure. Her blood pressure is improved. She reports that she has been compliant with her antihypertensive therapy. -: Gradual, hour(s) Location: chest Severity scale (0 -10): 8 Quality: aching Consistency: intermittent Improves with: other Worsens with: other Associated Symptoms: denies other symptoms - Related Data Home Medications Medication Instructions Recorded Confirmed Last Taken Imdur ER 60 mg PO DAILY 02/07/19 02/07/19 02/06/19 09:00 Lisinopril 20 mg PO BID 02/07/19 02/07/19 02/06/19 09:00 Metoprolol HCTZ 50-25 mg TAB 75 mg PO DAILY 02/07/19 02/07/19 02/06/19 Singulair 1 tab DAILY 02/07/19 02/07/19 Unknown Vitamin C 1 tab DAILY 02/07/19 02/07/19 02/06/19 09:00 Vitamin D3 1,000 UNIT TAB 1,000 unit PO DAILY 02/07/19 02/07/19 02/06/19 09:00 metFORMIN 500 mg PO BID 02/07/19 02/07/19 02/06/19 09:00 Previous Rx's Medication Instructions Recorded Last Taken Type Aspirin EC [Halfprin EC] 81 mg PO QDAY #30 tablet. 02/07/19 Unknown Rx AtorvaSTATin [Lipitor] 40 mg PO QHS #30 tablet 02/07/19 Unknown Rx Magnesium Oxide [Mag-Ox] 400 mg PO QDAY #14 tablet 05/24/19 Unknown Rx Allergies Allergy/AdvReac Type Severity Reaction Status Date / Time acetaminophen Allergy Hives Verified 08/26/17 12:52 [From Tylenol Sinus Congestion Pain] chlorpheniramine Allergy Hives Verified 08/26/17 12:52 [From Tylenol Sinus Congestion Pain] guaifenesin Allergy Hives Verified 08/26/17 12:52 [From Tylenol Sinus Congestion Pain] morphine Allergy Hives Verified 08/26/17 12:52 Penicillins Allergy Hives Verified 08/26/17 12:52 phenylephrine Allergy Hives Verified 08/26/17 12:52 [From Tylenol Sinus Congestion Pain] promethazine [From Phenergan] Allergy Hives Verified 08/26/17 12:52 pseudoephedrine Allergy Hives Verified 08/26/17 12:52 [From Sudafed] Sulfa (Sulfonamide Allergy Nausea Verified 08/26/17 12:52 Antibiotics) PSEUDOEPHEDRINE Allergy Hives Uncoded 08/26/17 15:36 ED Review of Systems ROS: Stated complaint: CHEST PAIN Other details as noted in HPI Constitutional: denies: fever Eyes: denies: eye discharge ENT: denies: congestion Respiratory: denies: wheezing Cardiovascular: chest pain Gastrointestinal: denies: nausea, vomiting, hematemesis, melena, hematochezia Genitourinary: denies: dysuria Musculoskeletal: denies: back pain Skin: denies: lesions Neurological: denies: weakness Hematological/Lymphatic: denies: easy bleeding ED Past Medical Hx - Past Medical History Previous Medical History?: Yes Hx Hypertension: Yes Hx Diabetes: Yes Additional medical history: ANEMIA - Surgical History Past Surgical History?: Yes Hx Cholecystectomy: Yes Hx Appendectomy: Yes Additional Surgical History: HEART/HERNIA - Social History Smoking Status: Never Smoker Substance Use Type: None - Medications Home Medications: Home Medications Medication Instructions Recorded Confirmed Last Taken Type Aspirin EC [Halfprin EC] 81 mg PO QDAY #30 tablet. 02/07/19 Unknown Rx AtorvaSTATin [Lipitor] 40 mg PO QHS #30 tablet 02/07/19 Unknown Rx Imdur ER 60 mg PO DAILY 02/07/19 02/07/19 02/06/19 09:00 History Lisinopril 20 mg PO BID 02/07/19 02/07/19 02/06/19 09:00 History Metoprolol HCTZ 50-25 mg TAB 75 mg PO DAILY 02/07/19 02/07/19 02/06/19 History Singulair 1 tab DAILY 02/07/19 02/07/19 Unknown History Vitamin C 1 tab DAILY 02/07/19 02/07/19 02/06/19 09:00 History Vitamin D3 1,000 UNIT TAB 1,000 unit PO DAILY 02/07/19 02/07/19 02/06/19 09:00 History metFORMIN 500 mg PO BID 02/07/19 02/07/19 02/06/19 09:00 History Magnesium Oxide [Mag-Ox] 400 mg PO QDAY #14 tablet 05/24/19 Unknown Rx ED Physical Exam - General Limitations: No Limitations General appearance: alert, in no apparent distress, anxious - Head Head exam: Present: atraumatic, normocephalic - Eye Eye exam: Present: normal appearance, EOMI. Absent: nystagmus - ENT ENT exam: Present: normal exam, normal orophraynx, mucous membranes moist, normal external ear exam - Neck Neck exam: Present: normal inspection, full ROM. Absent: tenderness, meningism us - Respiratory Respiratory exam: Present: normal lung sounds bilaterally, chest wall tenderness. Absent: respiratory distress, wheezes, rales, rhonchi, stridor - Cardiovascular Cardiovascular Exam: Present: regular rate, normal rhythm, normal heart sounds. Absent: bradycardia, tachycardia, irregular rhythm, systolic murmur, diastolic murmur, rubs, gallop - GI/Abdominal GI/Abdominal exam: Present: soft. Absent: distended, tenderness, guarding, rebound, rigid, pulsatile mass - Extremities Exam Extremities exam: Present: normal inspection, full ROM, other (2+ pulses noted in the bilateral upper and lower extremities. There is no palpable cord. negative Homans sign. Muscular compartments are soft. The pelvis is stable.). Absent: calf tenderness - Back Exam Back exam: Present: normal inspection, full ROM. Absent: tenderness, CVA tenderness (R), CVA tenderness (L), paraspinal tenderness, vertebral tenderness - Neurological Exam Neurological exam: Present: alert, other (There is no facial droop. The tongue is midline. Extraocular movements are intact bilaterally. There is 5 out of 5 strength in bilateral upper and lower extremities. Sensation is intact to light touch bilateral upper and lower extremities. There is a normal gait.). Abs ent: motor sensory deficit - Psychiatric Psychiatric exam: Present: normal affect, normal mood - Skin Skin exam: Present: warm, dry, intact, normal color. Absent: rash ED Course Vital Signs 05/24/19 05/24/19 01:49 02:39 Temperature 98.2 F Pulse Rate 72 Respiratory 19 16 Rate Blood Pressure 162/87 [Left] O2 Sat by Pulse 95 Oximetry - Reevaluation(s) Reevaluation #1: 05/24/19 03:04 Differential diagnosis, including but not limited to: GERD, gastritis, costochondritis, hiatal hernia, pneumonia, acute coronary syndrome, anxiety, chronic hypertension Assessment and plan: 78-year-old female with reproducible chest wall pain, admitted to this hospital a few months ago for similar symptoms, recently had a cardiac re-stratification, has no DVT or pulmonary embolism risk factors, and is low risk by Wells criteria. She is not tachycardic, tachypneic or hypoxic. Her EKG today is morphologically abnormal, but appears to be unchanged from prior. Advanced age and cardiovascular risk factor profile are reviewed and appreciated, as is her risk for major adverse cardiac event as per heart score, however, this is very similar to her prior presentation in January 2019. We will treat her symptoms, obtain appropriate laboratory studies, EKG x2, troponin x2, discussed with her covering od grinder operator. Anticipate that patient should be able to be safely discharged with close outpatient cardiology follow-up, given similarity to prior presentation, and her benign clinical appearance. In addition, she has endorsed a desire to follow-up with her outpatient od grinder operator, if possible. Aorta appears fairly unremarkable on x-ray the chest, she has unremarkable and normal pulses in her bilateral upper and lower extremities, therefore, this is unlikely to be aortic disease. There is no pulsatile abdominal mass. Reevaluation #2: 05/24/19 04:49 Patient in no acute distress. She is smiling and making jokes with the ER registration staff. Repeat EKG unchanged from prior. We are awaiting callback from her primary od grinder operator. Reevaluation #3: 05/24/19 05:38 Patient resting comfortably at this time, and she is in no acute distress. Blood pressure 150/75. EKG unchanged x2. She feels improved. Troponin negative x2. Contacted her covering od grinder operator, Dr. Burger, and we discussed her history, physical, laboratory studies and EKG. We agree that given her recent re-stratification, and current presentation today, it would be reasonable to have the patient closely follow-up with Dr. Burger in the outside office. The patient has indicated that she is reliable to follow-up. ED Medical Decision Making - Lab Data Result diagrams: 05/24/19 02:37 05/24/19 02:37 Vital Signs 05/24/19 05/24/19 01:49 02:39 Temperature 98.2 F Pulse Rate 72 Respiratory 19 16 Rate Blood Pressure 162/87 [Left] O2 Sat by Pulse 95 Oximetry - EKG Data -: EKG Interpreted by Ny - EKG Data 05/24/19 03:06 Today's EKG appears to be unchanged from prior EKG. The EKG today shows a sinus rhythm, 71 bpm, there is a left axis deviation, there is low voltage in the lateral leads, there is poor R wave progression, and some motion artifact. Intervals are within normal limits. The EKG is abnormal, unchanged from prior EKG from February 06, 2019 - Radiology Data Radiology results: report reviewed, image reviewed Print Report Referring Physician: JENNIFER ESCOBEDO Patient Name: SHENA ROE Date of : 1940 Sex: Female Report Date: 2019-05-24 Report Status: Finalized Findings [facility] [address] [place] [address] XRay Report Signed Patient: SHENA ROE MR#: [id number] : 1940 Acct:[id number] Age/Sex: 78 / F ADM Date: 05/24/19 Loc: ED Attending Dr: Ordering Physician: JENNIFER ESCOBEDO MD Date of Service: 05/24/19 Procedure(s): XR chest routine 2V Accession Number(s): [id number] cc: JENNIFER ESCOBEDO MD [facility] Time In Minutes: CHEST 2 VIEWS INDICATION / CLINICAL INFORMATION: Chest pain beginning today. History of heart surgery. COMPARISON: One view of the chest from 02/06/2019. FINDINGS: SUPPORT DEVICES: None. HEART / MEDIASTINUM: Stable. LUNGS / PLEURA: No significant pulmonary or pleural abnormality. No pneumothorax. ADDITIONAL FINDINGS: No significant additional findings. IMPRESSION: 1. No acute abnormality of the chest. Signer Name: Dez Matias MD Signed: 05/24/2019 2:45 AM Workstation Name: [id number] Transcribed By: [place] Dictated By: Dez Matias MD Electronically Authenticated By: Dez Matias MD Signed Date/Time: 05/24/19 0245 Critical care attestation.: If time is entered above; I have spent that time in minutes in the direct care of this critically ill patient, excluding procedure time. ED Disposition Clinical Impression: Chest wall pain, Hypomagnesemia, Elevated blood pressure reading Disposition: DC-01 TO HOME OR SELFCARE Is pt being admited?: No Does the pt Need Aspirin: No Condition: Stable Additional Instructions: Patient may take [id number] Pepcid, 20 mg by mouth, every 12-24 hours as needed for pain, patient may consider low-dose ibuprofen, 200 mg by mouth, with food, every 6 hours as needed for pain. Recommend that patient follow-up with her outpatient od grinder operator within the next 3 to 5 days. Take the magnesium supplementation as directed. Return to the emergency room right away with new, worsened or different symptoms not present on the initial emergency room evaluation. Referrals: ALEXANDRU MCCRARY NP [Primary Care Provider] - 3-5 Days RAIZA BURGER MD [Staff Physician] - 3-5 Days
[2019-05-24] MEDS: FAMOTIDINE 20 MG TAB PO ONE (02:35)
[2019-05-24] MEDS: SUCRALFATE 1 GM/10 ML ORAL LIQD PO ONE (02:39)
[2019-05-24] MEDS: IBUPROFEN 200 MG TAB PO ONE (02:39)
--- NOTE | 2019-05-24 02:49 | XRay Report ---
CHEST 2 VIEWS INDICATION / CLINICAL INFORMATION: Chest pain beginning today. History of heart surgery. COMPARISON: One view of the chest from 02/06/2019. FINDINGS: SUPPORT DEVICES: None. HEART / MEDIASTINUM: Stable. LUNGS / PLEURA: No significant pulmonary or pleural abnormality. No pneumothorax. ADDITIONAL FINDINGS: No significant additional findings. IMPRESSION: 1. No acute abnormality of the chest. Signer Name: Dez Matias MD Signed: 05/24/2019 2:45 AM Workstation Name: [id number]
[2019-05-24 03:40] LABS: Hematocrit 35.2 % (30.3-42.9); Hemoglobin 11.7 gm/dl (10.1-14.3); Mean Corpuscular HGB Conc 33 % (30-34); Mean Corpuscular Volume 96 fl (79-97); Platelet Count 123 K/mm3 (140-440); Red Blood Count 3.66 M/mm3 (3.65-5.03); Red Cell Distribution Width 14.4 % (13.2-15.2)
[2019-05-24 03:51] LABS: INR 0.94 (0.87-1.13)
[2019-05-24 04:15] LABS: BUN/Creatinine Ratio 22; Blood Urea Nitrogen 13 mg/dL (7-17); Calcium 9.2 mg/dL (8.4-10.2); Hemolysis Index 5
[2019-05-24] MEDS: MAGNESIUM OXIDE 400 MG TAB PO STA (05:40)
[2019-05-24] MEDS: MAGNESIUM SULFATE 2 GM/50 ML BAG IV ONE (05:45)
[2019-05-24] MEDS: MAGNESIUM SULFATE 1 GM in SODIUM CHLORIDE 0.9% 50 ML IV ONE (06:00)
[2019-05-24 07:35] VITALS: BP 132/68
== END 2019-05-24 07:20 | disposition home or self-care (01) ==
LOC: ED 01:31
DX: R07.89 Other chest pain (principal); E83.42 Hypomagnesemia; R03.0 Elevated blood-pressure reading, without diagnosis of hypertension; E11.9 Type 2 diabetes mellitus without complications; Z90.49 Acquired absence of other specified parts of digestive tract; Z79.899 Other long term (current) drug therapy; Z88.4 Allergy status to anesthetic agent; Z88.6 Allergy status to analgesic agent; Z88.8 Allergy status to other drugs, medicaments and biological substances
CPT/HCPCS: 36415; 71046; 80048; 82550; 83735; 84484; 85027; 85610; 93005; 93010; 96365; 99285; J3475